=== PATIENT | male | born 1975 | race Caucasian/White ===

== ENCOUNTER 2022-12-18 10:25 | Emergency (ER) | payer OTHER ==
[~2022-12-18] VITALS: Ht 177.8 cm; Wt 95.5 kg
[2022-12-18 11:06] VITALS: BP 134/85; PULSE 67; RESP 18; TEMP 98.4; O2SAT 96
[2022-12-18] MEDS ORDERED: TRIA0.02 TOP (11:26)
[2022-12-18] MEDS ORDERED: METH4PAK PO (11:26)
== END 2022-12-18 12:18 | disposition home or self-care (01) ==
LOC: ER 10:25
DX: T63.461A Toxic effect of venom of wasps, accidental (unintentional), initial encounter (principal); L23.5 Allergic contact dermatitis due to other chemical products; F41.9 Anxiety disorder, unspecified; I10 Essential (primary) hypertension; Z79.899 Other long term (current) drug therapy; Y92.89 Other specified places as the place of occurrence of the external cause

== ENCOUNTER 2022-12-21 07:38 | Emergency (ER) | payer OTHER ==
[~2022-12-21] VITALS: Ht 177.8 cm; Wt 100.8 kg
[~2022-12-21 07:38] MED LIST: METH4PAK PO; TRIA0.02 TOP
[2022-12-21 07:44] VITALS: BP 141/75; PULSE 60; RESP 18; TEMP 97.7; O2SAT 99
[2022-12-21] MEDS ORDERED: CLIN300C70 PO (08:37)
[2022-12-21] MEDS ORDERED: HYDR25CA PO (08:37)
== END 2022-12-21 09:26 | disposition home or self-care (01) ==
LOC: ER 07:38
DX: T63.461A Toxic effect of venom of wasps, accidental (unintentional), initial encounter (principal); L03.113 Cellulitis of right upper limb; T78.40XA Allergy, unspecified, initial encounter; F41.9 Anxiety disorder, unspecified; I10 Essential (primary) hypertension; Y92.89 Other specified places as the place of occurrence of the external cause

== ENCOUNTER 2023-10-08 11:59 | Emergency (ER) | payer OTHER ==
[~2023-10-08] VITALS: Ht 177.8 cm; Wt 94.1 kg
[~2023-10-08 11:59] MED LIST changes: +CLIN1CAP70 PO; +HYDR25CA PO
[2023-10-08] MEDS ORDERED: IBUP-1456 PO (14:03)
[2023-10-08 14:08] VITALS: BP 135/87; PULSE 72; RESP 14; TEMP 98.8; O2SAT 97
[2023-10-08] MEDS: IBUPROFEN 800 MG TAB PO ONE (14:46)
== END 2023-10-08 14:57 | disposition home or self-care (01) ==
LOC: ER 11:59
DX: S93.402A Sprain of unspecified ligament of left ankle, initial encounter (principal); S93.602A Unspecified sprain of left foot, initial encounter; I10 Essential (primary) hypertension; Z79.2 Long term (current) use of antibiotics; Z79.1 Long term (current) use of non-steroidal anti-inflammatories (NSAID); Z79.899 Other long term (current) drug therapy; X50.1XXA Overexertion from prolonged static or awkward postures, initial encounter; Y93.89 Activity, other specified; Y92.89 Other specified places as the place of occurrence of the external cause; Y99.8 Other external cause status
CPT/HCPCS: 73630